=== PATIENT | female | born 1960 | race Two or more races ===

== ENCOUNTER 2024-02-08 20:47 | Inpatient (IN) | payer BC, OTHER ==
[~2024-02-08] VITALS: Ht 172.7 cm; Wt 92.5 kg
[2024-02-08] MEDS ORDERED: KETOROLAC TROMETH 60MG/2ML VIAL IM ONE (22:00)
[2024-02-08 23:00] LABS: Basophils # (auto) 0.1 10 ^3/uL (0-0.2); Basophils % (auto) 0.7 % (0.0-2.0); Mean Corpuscular Volume 80.8 fL (80.0-100.0); Monocytes # (auto) 1.1 10 ^3/uL (0-1.3); White Blood Cell 12.6 10^3/uL (4.4-10.8)
[2024-02-08 23:01] LABS: Eosinophils # (auto) 0.5 10 ^3/uL (0-0.8); Eosinophils % (auto) 4.2 % (0.0-7.0); Hematocrit 43.7 % (36.0-46.0); Hemoglobin 14.2 g/dL (12.2-16.2); Lymphocytes # (auto) 3.3 10 ^3/uL (0.4-5.4); Lymphocytes % (auto) 26.5 % (10.0-50.0); Mean Corpuscular Hemoglobin 26.2 pg (28.0-32.0); Mean Corpuscular Hgb Conc. 32.4 g/dL (32.0-36.0); Neutrophils # (auto) 7.5 10 ^3/uL (1.6-8.6); Neutrophils % (auto) 59.6 % (37.0-80.0); Nucleated Red Blood Cells % 0.1 %; Red Blood Cells 5.41 10^6/uL (4.0-5.20)
[2024-02-08 23:17] LABS: Alanine Aminotransferase 14 U/L (7-40); Albumin 4.3 g/dL (3.2-4.8); Alkaline Phosphatase 87 U/L (46-116); Anion Gap 8 (5-15); Aspartate Aminotransferase 18 U/L (13-40); BUN/Creatinine Ratio 9.2 (10.0-20.0); Blood Urea Nitrogen 7 mg/dL (9-23); Carbon Dioxide 26 mmol/L (20-30); Chloride 110 mmol/L (98-107); Glucose 105 mg/dL (74-106); Magnesium 2.1 mg/dL (1.6-2.6); Sodium 144 mmol/L (136-145)
[2024-02-08 23:18] LABS: Bilirubin, Total 2.1 mg/dL (0.2-1.0); Total Protein 6.8 g/dL (5.7-8.2)
[2024-02-08 23:19] LABS: Erythrocyte Sedimentation Rate 1 mm/hr (0-20)
[2024-02-09] MEDS: cefTRIAXone 1GM/50ML D5W 50 ML IV ONE (00:11)
[2024-02-09] MEDS: AZITHROMYCIN 250 MG TAB PO ONE (00:12)
[2024-02-09] MEDS: KETOROLAC TROMETH 60MG/2ML VIAL IV ONE (00:12)
[2024-02-09] MEDS ORDERED: DEXTROSE (50%) 50ML SYRG IV PRN (01:00)
[2024-02-09] MEDS ORDERED: ONDANSETRON HCL 4 MG/2 ML VIAL IV PRN (01:00)
[2024-02-09] MEDS ORDERED: TEMAZEPAM 15 MG CAP PO PRN (01:00)
[2024-02-09 02:30] VITALS: PULSE 64; RESP 16; O2SAT 96
[2024-02-09] MEDS ORDERED: ATOR20TA50 PO (02:46)
[2024-02-09] MEDS ORDERED: FAMO-12 PO (02:46)
[2024-02-09] MEDS ORDERED: MIRA50TA PO (02:46)
[2024-02-09] MEDS ORDERED: EMPA1TAB3 PO (02:46)
[2024-02-09] MEDS ORDERED: AMLO1TAB22 PO (02:46)
[2024-02-09] MEDS ORDERED: METO1TAB9 PO (02:46)
[2024-02-09] MEDS ORDERED: RAMI10CA38 PO (02:46)
[2024-02-09] MEDS ORDERED: METF-370 PO (02:46)
[2024-02-09 05:00] VITALS: BP 137/60; PULSE 55; RESP 18; TEMP 98; O2SAT 93
[2024-02-09] MEDS: ACCU-CHEK COMFORT CURVE STRIP VI SCH (05:52)
[2024-02-09] MEDS: InsuLIN REG 1unit/0.01ml Soln (100units/ml) SC SCH (05:52)
[2024-02-09 09:00] VITALS: BP 155/70; PULSE 55; RESP 18; TEMP 98.3; O2SAT 95
[2024-02-09 09:36] LABS: Hemoglobin 13.8 g/dL (12.2-16.2); Monocytes # (auto) 1.1 10 ^3/uL (0-1.3); Neutrophils # (auto) 7.8 10 ^3/uL (1.6-8.6)
[2024-02-09 09:37] LABS: Basophils # (auto) 0.1 10 ^3/uL (0-0.2); Basophils % (auto) 0.5 % (0.0-2.0); Eosinophils # (auto) 0.5 10 ^3/uL (0-0.8); Eosinophils % (auto) 3.9 % (0.0-7.0); Hematocrit 42.6 % (36.0-46.0); Lymphocytes # (auto) 2.7 10 ^3/uL (0.4-5.4); Lymphocytes % (auto) 22.6 % (10.0-50.0); Mean Corpuscular Hemoglobin 25.9 pg (28.0-32.0); Mean Corpuscular Hgb Conc. 32.3 g/dL (32.0-36.0); Mean Corpuscular Volume 80.2 fL (80.0-100.0); Monocytes % (auto) 8.7 % (0.0-12.0); Neutrophils % (auto) 64.3 % (37.0-80.0); Nucleated Red Blood Cells % 0.1 %; Red Blood Cells 5.31 10^6/uL (4.0-5.20); Red Cell Distribution Width 15.8 % (11.8-14.3); White Blood Cell 12.1 10^3/uL (4.4-10.8)
[2024-02-09] MEDS: EMPAGLIFLOZIN 10 MG TAB PO SCH (10:10)
[2024-02-09] MEDS: LISINOPRIL 20 MG TAB PO SCH (10:11)
[2024-02-09] MEDS: amLODIPine BESYLATE 5 MG TAB PO SCH (10:11)
[2024-02-09] MEDS ORDERED: LORazepam 2MG/ML-1ML VIAL IV PRN (10:30)
[2024-02-09] MEDS: GADOTERATE MEG 10 MMOL/20ml INJ (0.5MMOL/ml) IV ONE (10:41)
[2024-02-09 10:49] LABS: Alanine Aminotransferase 13 U/L (7-40); Albumin 4.1 g/dL (3.2-4.8); Alkaline Phosphatase 82 U/L (46-116); Anion Gap 7 (5-15); Aspartate Aminotransferase 16 U/L (13-40); Blood Urea Nitrogen 8 mg/dL (9-23); Calcium 9.6 mg/dL (8.5-10.1); Carbon Dioxide 27 mmol/L (20-30); Chloride 110 mmol/L (98-107); Cholesterol 98 mg/dL (< 200); Glucose 94 mg/dL (74-106); LDL Cholesterol 44 mg/dL (< 100); Potassium 3.4 mmol/L (3.5-5.1); Sodium 144 mmol/L (136-145); Triglycerides 172 mg/dL (< 150)
[2024-02-09 10:50] LABS: Bilirubin, Total 1.7 mg/dL (0.2-1.0); HDL Cholesterol 31 mg/dL (40-59); Total Protein 6.1 g/dL (5.7-8.2)
[2024-02-09 11:22] LABS: Hepatitis B Surface Antigen Negative (Negative)
[2024-02-09 11:26] LABS: Partial Thromboplastin Time 26.6 SEC (24.5-34.5); Prothrombin Time 10.5 sec (9.3-11.8)
[2024-02-09 11:51] LABS: Rapid Influenza A Negative (Negative); Rapid Influenza B Negative (Negative)
[2024-02-09 11:55] LABS: Hepatitis C Antibody Negative (Negative)
[2024-02-09 11:59] LABS: COVID19 ANTIGEN SOFIA FIA NEGATIVE (NEGATIVE)
[2024-02-09 12:04] LABS: Urine Bacteria NONE SEEN /hpf (None Seen); Urine Blood Negative /uL (Negative); Urine Clarity Clear (Clear); Urine Color Yellow (Yellow); Urine Mucus FEW (None Seen); Urine Protein, UAD Negative (Negative); Urine Specific Gravity 1.015 (1.001-1.035); Urine Urobilinogen Normal (Negative); Urine WBC 11 /hpf (0 - 5)
[2024-02-09 13:00] VITALS: BP 152/69; PULSE 57; RESP 18; TEMP 97.4; O2SAT 94
[2024-02-09] MEDS: HYDROcodone-ACET 5/325MG TAB PO PRN (16:25)
[2024-02-09 17:00] VITALS: BP 142/71; PULSE 58; RESP 17; TEMP 97.5; O2SAT 93
[2024-02-09] MEDS: ATORVASTATIN 20 MG TAB PO SCH (20:54)
[2024-02-09 21:00] VITALS: BP 114/50; PULSE 56; RESP 20; TEMP 97.5; O2SAT 97
[2024-02-09] MEDS ORDERED: cefTRIAXone 1GM/50ML D5W 50 ML IV SCH (21:00)
[2024-02-09] MEDS ORDERED: ATORVASTATIN 20 MG TAB PO SCH (22:00)
[2024-02-09] MEDS ORDERED: AZITHROMYCIN 500MG/ 250ML 250 ML IV SCH (22:00)
[2024-02-10] VITALS (7 sets, daily range): BP systolic 126–146; BP diastolic 6–92; PULSE 52–79; RESP 16–20; TEMP 97.6–98.5; O2SAT 91–95
[2024-02-10 05:14] LABS: Eosinophils # (auto) 0.5 10 ^3/uL (0-0.8); Mean Corpuscular Hgb Conc. 33.4 g/dL (32.0-36.0); Nucleated Red Blood Cells % 0.1 %
[2024-02-10 05:16] LABS: Basophils # (auto) 0 10 ^3/uL (0-0.2); Basophils % (auto) 0.5 % (0.0-2.0); Eosinophils % (auto) 5.5 % (0.0-7.0); Hematocrit 40.8 % (36.0-46.0); Hemoglobin 13.7 g/dL (12.2-16.2); Lymphocytes % (auto) 31.6 % (10.0-50.0); Mean Corpuscular Hemoglobin 26.2 pg (28.0-32.0); Mean Corpuscular Volume 78.5 fL (80.0-100.0); Monocytes # (auto) 0.9 10 ^3/uL (0-1.3); Monocytes % (auto) 9.2 % (0.0-12.0); Neutrophils % (auto) 53.2 % (37.0-80.0); Red Cell Distribution Width 15.6 % (11.8-14.3); White Blood Cell 9.4 10^3/uL (4.4-10.8)
[2024-02-10 05:37] LABS: Alanine Aminotransferase 10 U/L (7-40); Albumin 3.9 g/dL (3.2-4.8); Alkaline Phosphatase 79 U/L (46-116); Anion Gap 8 (5-15); Aspartate Aminotransferase 15 U/L (13-40); BUN/Creatinine Ratio 15.7 (10.0-20.0); Blood Urea Nitrogen 11 mg/dL (9-23); Calcium 9.6 mg/dL (8.5-10.1); Carbon Dioxide 26 mmol/L (20-30); Chloride 110 mmol/L (98-107); Glucose 119 mg/dL (74-106); Potassium 3.5 mmol/L (3.5-5.1); Sodium 144 mmol/L (136-145)
[2024-02-10 05:38] LABS: Bilirubin, Total 1.8 mg/dL (0.2-1.0); Total Protein 5.9 g/dL (5.7-8.2)
[2024-02-10 07:05] LABS: Folate (Folic Acid) 6.52 ng/mL (>5.38)
[2024-02-10] MEDS: DOCUSATE SOD 100 MG CAP PO ONE (18:07)
[2024-02-11] VITALS (7 sets, daily range): BP systolic 132–163; BP diastolic 60–80; PULSE 51–84; RESP 14–20; TEMP 97.6–98.6; O2SAT 92–100
[2024-02-11 05:04] LABS: Basophils # (auto) 0.1 10 ^3/uL (0-0.2); Basophils % (auto) 0.7 % (0.0-2.0); Eosinophils # (auto) 0.5 10 ^3/uL (0-0.8); Eosinophils % (auto) 4.6 % (0.0-7.0); Lymphocytes # (auto) 3.1 10 ^3/uL (0.4-5.4)
[2024-02-11 05:06] LABS: Hematocrit 42.2 % (36.0-46.0); Lymphocytes % (auto) 29.2 % (10.0-50.0); Mean Corpuscular Hemoglobin 26.3 pg (28.0-32.0); Mean Corpuscular Hgb Conc. 33.2 g/dL (32.0-36.0); Mean Corpuscular Volume 79.3 fL (80.0-100.0); Monocytes # (auto) 0.9 10 ^3/uL (0-1.3); Monocytes % (auto) 8.4 % (0.0-12.0); Neutrophils % (auto) 57.1 % (37.0-80.0); Red Blood Cells 5.32 10^6/uL (4.0-5.20); Red Cell Distribution Width 15.9 % (11.8-14.3); White Blood Cell 10.6 10^3/uL (4.4-10.8)
[2024-02-11 05:19] LABS: Alanine Aminotransferase 10 U/L (7-40); Alkaline Phosphatase 79 U/L (46-116); Anion Gap 7 (5-15); BUN/Creatinine Ratio 13.2 (10.0-20.0); Blood Urea Nitrogen 9 mg/dL (9-23); Calcium 9.7 mg/dL (8.7-10.4); Carbon Dioxide 26 mmol/L (20-30); Chloride 108 mmol/L (98-107); Glucose 126 mg/dL (74-106); Potassium 3.7 mmol/L (3.5-5.1); Sodium 141 mmol/L (136-145)
[2024-02-11 05:20] LABS: Aspartate Aminotransferase 13 U/L (13-40)
[2024-02-11 05:21] LABS: Bilirubin, Total 1.6 mg/dL (0.2-1.0); Total Protein 6.4 g/dL (5.7-8.2)
[2024-02-11] MEDS: DOCUSATE SOD 100 MG CAP PO PRN (09:33)
[2024-02-11] MEDS: LACTULOSE 20Gm/30ML SOLN PO ONE (11:36)
[2024-02-11] MEDS ORDERED: GADOTERATE MEG 7.5 MMOL/15ml INJ (0.5MMOL/ml) IV ONE (15:38)
[2024-02-11] MEDS ORDERED: hydrALAZINE HCL 20 MG/ML VL IV PRN (18:45)
[2024-02-12] VITALS (7 sets, daily range): BP systolic 108–137; BP diastolic 53–88; PULSE 57–106; RESP 17–20; TEMP 97.4–97.7; O2SAT 91–100
[2024-02-12 05:12] LABS: Basophils # (auto) 0.1 10 ^3/uL (0-0.2); Eosinophils # (auto) 0.5 10 ^3/uL (0-0.8)
[2024-02-12 05:15] LABS: Alanine Aminotransferase 11 U/L (7-40); Albumin 3.9 g/dL (3.2-4.8); Alkaline Phosphatase 83 U/L (46-116); Anion Gap 9 (5-15); Aspartate Aminotransferase 16 U/L (13-40); BUN/Creatinine Ratio 10.8 (10.0-20.0); Blood Urea Nitrogen 7 mg/dL (9-23); Calcium 9.7 mg/dL (8.7-10.4); Carbon Dioxide 24 mmol/L (20-30); Chloride 109 mmol/L (98-107); Glucose 123 mg/dL (74-106); Magnesium 2.2 mg/dL (1.6-2.6); Potassium 3.9 mmol/L (3.5-5.1); Sodium 142 mmol/L (136-145)
[2024-02-12 05:16] LABS: Basophils % (auto) 0.9 % (0.0-2.0); Bilirubin, Total 1.4 mg/dL (0.2-1.0); Eosinophils % (auto) 4.2 % (0.0-7.0); Hematocrit 44.1 % (36.0-46.0); Hemoglobin 14.6 g/dL (12.2-16.2); Lymphocytes # (auto) 3.2 10 ^3/uL (0.4-5.4); Lymphocytes % (auto) 26.6 % (10.0-50.0); Mean Corpuscular Hemoglobin 26.7 pg (28.0-32.0); Mean Corpuscular Hgb Conc. 33.1 g/dL (32.0-36.0); Mean Corpuscular Volume 80.6 fL (80.0-100.0); Monocytes % (auto) 8.1 % (0.0-12.0); Neutrophils # (auto) 7.1 10 ^3/uL (1.6-8.6); Neutrophils % (auto) 60.2 % (37.0-80.0); Red Blood Cells 5.47 10^6/uL (4.0-5.20); Red Cell Distribution Width 15.7 % (11.8-14.3); Total Protein 6.5 g/dL (5.7-8.2); White Blood Cell 11.8 10^3/uL (4.4-10.8)
[2024-02-12] MEDS: amLODIPine BESYLATE 5 MG TAB PO SCH (09:51)
[2024-02-13 01:00] VITALS: BP 139/86; PULSE 88; RESP 16; TEMP 98.7; O2SAT 94
[2024-02-13 05:52] LABS: Basophils # (auto) 0.1 10 ^3/uL (0-0.2); Eosinophils # (auto) 0.5 10 ^3/uL (0-0.8); Monocytes # (auto) 1.1 10 ^3/uL (0-1.3)
[2024-02-13 05:57] LABS: Basophils % (auto) 0.7 % (0.0-2.0); Chloride 109 mmol/L (98-107); Eosinophils % (auto) 4.4 % (0.0-7.0); Hemoglobin 15.1 g/dL (12.2-16.2); Mean Corpuscular Hemoglobin 26.1 pg (28.0-32.0); Mean Corpuscular Hgb Conc. 32.8 g/dL (32.0-36.0); Mean Corpuscular Volume 79.4 fL (80.0-100.0); Monocytes % (auto) 9.1 % (0.0-12.0); Neutrophils # (auto) 6.8 10 ^3/uL (1.6-8.6); Neutrophils % (auto) 53.8 % (37.0-80.0); Nucleated Red Blood Cells % 0.1 %; Potassium 3.9 mmol/L (3.5-5.1); Sodium 143 mmol/L (136-145); White Blood Cell 12.6 10^3/uL (4.4-10.8)
[2024-02-13 05:58] LABS: Anion Gap 8 (5-15); Calcium 9.8 mg/dL (8.5-10.1); Carbon Dioxide 26 mmol/L (20-30)
[2024-02-13 06:03] LABS: Glucose 116 mg/dL (74-106)
[2024-02-13 06:04] LABS: BUN/Creatinine Ratio 13.8 (10.0-20.0); Blood Urea Nitrogen 12 mg/dL (9-23)
[2024-02-13 09:00] VITALS: BP 111/43; PULSE 77; RESP 18; TEMP 97.5; O2SAT 90
[2024-02-13 13:00] VITALS: BP 110/67; PULSE 87; RESP 16; TEMP 97.6; O2SAT 90
[2024-02-13] MEDS: CYANOCOBALAMIN (B-12) 1000 MCG/1 ML VIAL IM ONE (13:40)
[2024-02-13 17:00] VITALS: BP 112/66; PULSE 88; RESP 18; TEMP 97.8; O2SAT 91
[2024-02-13 23:11] VITALS: BP 121/74; PULSE 99; RESP 18; TEMP 98.1; O2SAT 92
[2024-02-14 01:36] VITALS: BP 118/74; PULSE 93; RESP 18; TEMP 97.8; O2SAT 95
[2024-02-14 05:19] VITALS: BP 109/61; PULSE 100; RESP 18; TEMP 97.9; O2SAT 92
[2024-02-14 05:30] LABS: Basophils # (auto) 0.1 10 ^3/uL (0-0.2); Hemoglobin 14.9 g/dL (12.2-16.2); Red Cell Distribution Width 16.1 % (11.8-14.3); White Blood Cell 12.7 10^3/uL (4.4-10.8)
[2024-02-14 05:34] LABS: Basophils % (auto) 0.9 % (0.0-2.0); Eosinophils # (auto) 0.4 10 ^3/uL (0-0.8); Eosinophils % (auto) 3.2 % (0.0-7.0); Mean Corpuscular Hemoglobin 26.3 pg (28.0-32.0); Mean Corpuscular Hgb Conc. 33.1 g/dL (32.0-36.0); Mean Corpuscular Volume 79.5 fL (80.0-100.0); Monocytes # (auto) 1.1 10 ^3/uL (0-1.3); Neutrophils # (auto) 6.9 10 ^3/uL (1.6-8.6); Neutrophils % (auto) 54.9 % (37.0-80.0); Red Blood Cells 5.66 10^6/uL (4.0-5.20)
[2024-02-14 05:39] LABS: Calcium 10.2 mg/dL (8.7-10.4); Chloride 109 mmol/L (98-107); Potassium 3.8 mmol/L (3.5-5.1); Sodium 143 mmol/L (136-145)
[2024-02-14 05:40] LABS: Anion Gap 10 (5-15); Carbon Dioxide 24 mmol/L (20-30)
[2024-02-14 05:45] LABS: BUN/Creatinine Ratio 17.2 (10.0-20.0); Blood Urea Nitrogen 15 mg/dL (9-23); Glucose 131 mg/dL (74-106)
[2024-02-14 05:46] LABS: Magnesium 2.3 mg/dL (1.6-2.6)
[2024-02-14 06:41] LABS: CRP High Sensitivity 0.57 mg/dL (<1.0)
[2024-02-14 09:00] VITALS: BP 106/57; PULSE 84; RESP 18; TEMP 97.9; O2SAT 92
[2024-02-14] MEDS: CYANOCOBALAMIN 500 MCG TAB PO SCH (10:06)
[2024-02-14 13:00] VITALS: BP 100/67; PULSE 88; RESP 18; TEMP 97.7; O2SAT 94
[2024-02-14 17:00] VITALS: BP 128/68; PULSE 88; RESP 18; TEMP 97.6; O2SAT 94
[2024-02-15 05:00] VITALS: BP 133/83; PULSE 90; RESP 20; TEMP 98.2; O2SAT 93
[2024-02-15 06:30] LABS: Basophils # (auto) 0.1 10 ^3/uL (0-0.2); Eosinophils # (auto) 0.5 10 ^3/uL (0-0.8); Eosinophils % (auto) 4.4 % (0.0-7.0); Hemoglobin 14.8 g/dL (12.2-16.2); Lymphocytes # (auto) 3.8 10 ^3/uL (0.4-5.4); Neutrophils # (auto) 6.7 10 ^3/uL (1.6-8.6); Red Cell Distribution Width 16.2 % (11.8-14.3)
[2024-02-15 06:33] LABS: Basophils % (auto) 0.9 % (0.0-2.0); Hematocrit 45.7 % (36.0-46.0); Mean Corpuscular Hemoglobin 26.1 pg (28.0-32.0); Mean Corpuscular Hgb Conc. 32.4 g/dL (32.0-36.0); Mean Corpuscular Volume 80.5 fL (80.0-100.0); Monocytes # (auto) 1.1 10 ^3/uL (0-1.3); Monocytes % (auto) 9.1 % (0.0-12.0); Neutrophils % (auto) 54.6 % (37.0-80.0); Nucleated Red Blood Cells % 0.1 %; Red Blood Cells 5.68 10^6/uL (4.0-5.20); White Blood Cell 12.3 10^3/uL (4.4-10.8)
[2024-02-15 06:36] LABS: Chloride 109 mmol/L (98-107); Sodium 142 mmol/L (136-145)
[2024-02-15 06:37] LABS: Anion Gap 9 (5-15); Calcium 10.1 mg/dL (8.7-10.4); Carbon Dioxide 24 mmol/L (20-30)
[2024-02-15 06:42] LABS: BUN/Creatinine Ratio 17.1 (10.0-20.0); Blood Urea Nitrogen 14 mg/dL (9-23); Glucose 132 mg/dL (74-106)
[2024-02-15 08:57] VITALS: BP 107/71; PULSE 94; RESP 18; TEMP 97.5; O2SAT 93
[2024-02-15] MEDS: ACETAMINOPHEN 325 MG TAB PO PRN (10:30)
[2024-02-15 12:40] VITALS: BP 113/71; PULSE 95; RESP 18; TEMP 97.5; O2SAT 97
[2024-02-15] MEDS: fentaNYL CITRATE 100 MCG/2 ML VL ONE (13:25)
[2024-02-15] MEDS: MIDAZOLAM HCL 2MG/2ML 2ml VIAL (1mg/ml) ONE (13:25)
[2024-02-15] MEDS: LIDOCAINE 2%HCL (LOCAL ANESTH.) INJ 20ML MDV ONE (13:26)
[2024-02-15 15:17] LABS: Protein, CSF 60.1 mg/dL (15-45)
[2024-02-15 16:36] LABS: CSF White Blood Cells 3 CUMM (0-5); Description,CSF CLEAR
[2024-02-15 16:40] VITALS: BP 117/71; PULSE 85; RESP 20; TEMP 97.8; O2SAT 93
[2024-02-15 20:00] VITALS: PULSE 87
[2024-02-15 21:00] VITALS: BP 114/50; PULSE 87; RESP 19; TEMP 97.6; O2SAT 93
[2024-02-16 01:00] VITALS: BP 99/38; PULSE 91; RESP 17; TEMP 97.5; O2SAT 91
[2024-02-16 05:00] VITALS: BP 122/61; PULSE 90; RESP 16; TEMP 97.8; O2SAT 94
[2024-02-16 06:07] LABS: Anion Gap 8 (5-15); Carbon Dioxide 24 mmol/L (20-30); Chloride 109 mmol/L (98-107); Potassium 4.1 mmol/L (3.5-5.1); Sodium 141 mmol/L (136-145)
[2024-02-16 06:09] LABS: Calcium 9.8 mg/dL (8.7-10.4)
[2024-02-16 06:14] LABS: BUN/Creatinine Ratio 18.5 (10.0-20.0); Basophils # (auto) 0.1 10 ^3/uL (0-0.2); Blood Urea Nitrogen 15 mg/dL (9-23); Eosinophils # (auto) 0.5 10 ^3/uL (0-0.8); Glucose 124 mg/dL (74-106); Lymphocytes # (auto) 3.6 10 ^3/uL (0.4-5.4); Mean Corpuscular Hemoglobin 26.3 pg (28.0-32.0); Monocytes # (auto) 0.9 10 ^3/uL (0-1.3); Nucleated Red Blood Cells % 0.1 %
[2024-02-16 06:17] LABS: Basophils % (auto) 0.7 % (0.0-2.0); Eosinophils % (auto) 4.5 % (0.0-7.0); Hematocrit 45.3 % (36.0-46.0); Hemoglobin 14.9 g/dL (12.2-16.2); Lymphocytes % (auto) 35.5 % (10.0-50.0); Mean Corpuscular Volume 79.8 fL (80.0-100.0); Monocytes % (auto) 9.3 % (0.0-12.0); Neutrophils # (auto) 5.1 10 ^3/uL (1.6-8.6); Red Blood Cells 5.68 10^6/uL (4.0-5.20); Red Cell Distribution Width 15.9 % (11.8-14.3); White Blood Cell 10.2 10^3/uL (4.4-10.8)
[2024-02-16] MEDS ORDERED: AML5T PO (07:11)
[2024-02-16] MEDS ORDERED: ATOR20TA50 PO (07:12)
[2024-02-16] MEDS ORDERED: CYAN500T3 PO (07:12)
[2024-02-16 09:00] VITALS: BP 100/65; PULSE 96; RESP 18; TEMP 97.9; O2SAT 93
[2024-02-16 13:00] VITALS: BP 109/70; PULSE 94; RESP 18; TEMP 97.6; O2SAT 92
[2024-02-16] MEDS ORDERED: PRED20TA2 PO (13:09)
[2024-02-16 13:47] VITALS: BP 100/65; TEMP 36.6
[2024-02-17 14:06] LABS: IgG, Quant, CSF 2.7 mg/dL (0.0-6.7); IgG, Syn Rate,CSF 0.6 mg/day (-9.9 TO +3.3)
== END 2024-02-16 16:40 | disposition home or self-care (01) | DRG 194 ==
LOC: ER 20:47 → OVERFLOW 23:44 → CENTRAL 23:44 → TELE-CENTR 02-09 22:19 → CENTRAL 02-13 11:46
PROVIDERS: ADMIT Internal Medicine; ATTEND Internal Medicine
DX: J18.9 Pneumonia, unspecified organism (principal); G45.9 Transient cerebral ischemic attack, unspecified; G35 Multiple sclerosis; E11.9 Type 2 diabetes mellitus without complications; I10 Essential (primary) hypertension; E66.9 Obesity, unspecified; E80.6 Other disorders of bilirubin metabolism; F17.200 Nicotine dependence, unspecified, uncomplicated; E53.8 Deficiency of other specified B group vitamins; K59.00 Constipation, unspecified; H53.8 Other visual disturbances; D32.0 Benign neoplasm of cerebral meninges; Z68.31 Body mass index [BMI] 31.0-31.9, adult; Z79.4 Long term (current) use of insulin
CPT/HCPCS: 36415; 62272; 70450; 70553; 71045; 72142; 80048; 80053; 80061; 81001; 82042; 82306; 82607; 82746; 82784; 82945; 82962; 83036; 83605; 83735; 83880; 84157; 84443; 84484; 85025; 85610; 85652; 85730; 86141; 86803; 87070; 87086; 87205; 87340; 87426; 87804; 89051; 93005; 93306; 93886; 99152; G0378; J1815; J1885; J2250